=== PATIENT | male | born 1935 | race Caucasian/White ===

== ENCOUNTER → 2016-06-01 | Outpatient (CLI) | payer OTHER | LOC: MMPC 11:11 | PROVIDERS: ATTEND Internal Medicine | DX: E53.8 Deficiency of other specified B group vitamins (principal) | CPT/HCPCS: G0463; J3420 ==

== ENCOUNTER → 2016-06-22 | Outpatient (CLI) | payer OTHER | LOC: MMPC 11:11 | PROVIDERS: ATTEND Surgery | DX: Z86.010 Personal history of colon polyps (principal); Z80.0 Family history of malignant neoplasm of digestive organs | CPT/HCPCS: 99212 ==

== ENCOUNTER 2016-07-03 08:35 | Day surgery (SDC) | payer OTHER ==
[~2016-07-03 08:35] MED LIST: LIDOCAINE W/ SODIUM BICARB 0.5 ML SYR ONE; Lactated Ringers 1,000 ML PRIMARY IV ONE
--- NOTE | 2016-07-03 11:02 | GEN.OPNOTE ---
Colonoscopy Procedure Note Surgery Date: 07/03/16 Preoperative Diagnosis: Personal history of colon polyps. Family history of colon cancer. Postoperative Diagnosis: Same. Diverticulosis. Procedure: Complete colonoscopy with multiple biopsies and hot snare polypectomy. Surgeon: Josue Osullivan MD Anesthesia Provider: Diana Young CRNA Anesthesia Type: MAC Indications: See preoperative diagnosis. Findings: Prep : [Very good] Cecum : [Normal] Ascending : [A few diverticuli. Small polyp biopsied and destroyed.] Transverse : [Small polyp at the hepatic flexure and 1 in the transverse colon. Both biopsied and destroyed.] Sigmoid : [Diverticulosis. Sessile polyp at 40 cm. Hot snare polypectomy performed. After the hot snare polypectomy I was unable to locate the polyp after passing through the area 3 separate times. A small piece was sent.] Rectum : [Normal] Digital Rectal Exam : [Firm but normal sized prostate. No nodules.] A lubricated flexible colonoscope was inserted and passed to the blind end of the cecum. The blind end of the cecum and ileocecal valve were clearly seen. Air was aspirated as the scope was withdrawn. Call the biopsy removal of polyps were done in the ascending colon, hepatic flexure, and transverse colon. Hot snare polypectomy was performed in the sigmoid colon but specimen was not retrieved. There was scattered sigmoid diverticuli. There was no evidence of tumor, neoplastic mass, infectious or inflammatory process. The scope was withdrawn completing the procedure. Patient tolerated the procedure well without complication. He was taken to outpatient surgery in stable condition. Follow up with my office on an as-needed basis. We will call the biopsy results when the pathology report is available. We will plan therapy and follow -up pending that report.
[2016-07-03 11:54] VITALS: TEMP 96.8
[2016-07-03 11:56] VITALS: RESP 16
== END 2016-07-03 11:39 | disposition home or self-care (01) ==
LOC: SDSC 08:35
PROVIDERS: ATTEND Surgery
DX: Z86.010 Personal history of colon polyps (principal); Z80.0 Family history of malignant neoplasm of digestive organs; K57.90 Diverticulosis of intestine, part unspecified, without perforation or abscess without bleeding; K63.5 Polyp of colon
CPT/HCPCS: 45380; J2704; J7120

== ENCOUNTER → 2016-07-22 | Outpatient (CLI) | payer OTHER | LOC: MMPC 11:11 | PROVIDERS: ATTEND Internal Medicine | DX: K90.0 Celiac disease (principal); D61.818 Other pancytopenia; E53.8 Deficiency of other specified B group vitamins; I10 Essential (primary) hypertension; L57.0 Actinic keratosis | CPT/HCPCS: 17004 ×2; 99214; G0463; J3420 ==

== ENCOUNTER → 2016-10-06 | Outpatient (CLI) | payer OTHER | LOC: MMPC 11:11 | PROVIDERS: ATTEND Internal Medicine | DX: E53.8 Deficiency of other specified B group vitamins (principal) | CPT/HCPCS: G0463; J3420 ==

== ENCOUNTER → 2016-10-13 | Outpatient (CLI) | payer OTHER ==
--- NOTE | 2016-10-14 00:01 | DI ---
XR CXR 2VW PA/LAT,10/13/2016 4:38 PM: Clinical History: Upper respiratory tract infection Previous Exam: None at this facility. Findings: 2 frontal radiographs of the chest are obtained and demonstrate airspace disease within the right meera g base. There is no effusion. The cardiomediastinum and bony thorax are unremarkable. Impression: Pneumonia within the right lung base. Recommend followup imaging after treatment to document resoluti on.
== END ==
LOC: MOB RAD 16:39
PROVIDERS: ATTEND Nurse Practitioner
DX: R05 Cough (principal); J18.9 Pneumonia, unspecified organism; J06.9 Acute upper respiratory infection, unspecified; R06.02 Shortness of breath; M79.1 Myalgia; Z87.891 Personal history of nicotine dependence
CPT/HCPCS: 71020; 99214

== ENCOUNTER → 2016-10-28 | Outpatient (CLI) | payer OTHER ==
--- NOTE | 2016-10-29 00:59 | DI ---
XR CXR 2VW PA/LAT,10/28/2016 4:06 PM: Clinical History: Right lower lung pneumonia. Previous Exam: October 13, 2016 Findings: PA and lateral views of the chest are obtained, and demonstrate some improvement in the airspace dise ase within the right lower lobe. There is still some scarring within the right lung base. There is fl attening of the hemidiaphragms. Mild diffuse osteopenia is noted. Impression: Improving right lower lobe infiltrate with some residual scarring.
== END ==
LOC: RAD 16:01
PROVIDERS: ATTEND Nurse Practitioner
DX: J18.9 Pneumonia, unspecified organism (principal)
CPT/HCPCS: 71020